=== PATIENT | male | born 1940 | race Caucasian/White ===

== ENCOUNTER 2021-08-31 08:22 | Emergency (ER) | payer BC, MEDICAID ==
[~2021-08-31] VITALS: Ht 165.1 cm; Wt 100.0 kg
[2021-08-31] MEDS ORDERED: LOSA50TA41 PO (08:32)
[2021-08-31] MEDS ORDERED: KETOROLAC 60MG/2ML VIAL IM ONE (09:00)
[2021-08-31 09:32] VITALS: BP 157/88
[2021-08-31] MEDS ORDERED: NIRM1TAB PO (09:46)
[2021-08-31] MEDS ORDERED: IBUP-2029 MT (09:46)
== END 2021-08-31 10:11 | disposition home or self-care (01) ==
LOC: ER 09:05
DX: U07.1 COVID-19 (principal); I10 Essential (primary) hypertension
CPT/HCPCS: 87426; 96372; 99283; C9803; J1885